=== PATIENT | female | born 1980 | race Caucasian/White ===

== ENCOUNTER 2017-05-06 22:08 | Inpatient (IN) | payer OTHER ==
[2017-05-06] MEDS ORDERED: AMPICILLIN SODIUM 2 GM VIAL ONE (22:30)
[2017-05-06 23:00] LABS: BASO % 0.3 % (0-2.0); EOS % 0.2 % (0-4.5); HEMATOCRIT 33.9 % (32.4-45.2); HEMOGLOBIN 11.2 GM/dL (10.7-15.3); LYMPH % 10.3 % (8-40); MCH 29.4 pg (25.7-33.7); MEAN CELL VOLUME 89.2 fl (80-96); MEAN PLT VOLUME 11.3 fl (7.5-11.1); MONO % 4.6 % (3.8-10.2); NEUT % 84.6 % (42.8-82.8); PLATELET COUNT 146 K/MM3 (134-434); RBC 3.81 M/mm3 (3.60-5.2); RDW 17.2 % (11.6-15.6); WHITE BLOOD COUNT 12.5 K/mm3 (4.0-10.0)
[2017-05-06] MEDS ORDERED: AMPICILLIN - 2 GM in SODIUM CHLORIDE 100 ML IVPB ONE (23:00)
[2017-05-06] MEDS: ELECTROLYTE-148 SOLN 1,000 ML IV SCH (23:00)
[2017-05-06] MEDS ORDERED: PROMETHAZINE HCL 25 MG/1 ML VIAL IVPUSH ONE (23:02)
--- NOTE | 2017-05-06 23:10 | HP ---
Past Medical History - Primary Care Physician PCP:: Janey Smiley - Admission Chief Complaint: 36 yo spontaneous rupture of membranes. Labor. GBS + History of Present Illness: 36 yo EDC 05/07/17 [id number] wk with c/o SROM and labor +AFM HIV neg GBS pos Hx of previa that resolved History Source: Patient - Past Medical History ...: 1 Psych: Yes: Depression - Past Surgical History Past Surgical History: Yes: None Hx Myomectomy: No Hx Transabdominal Cerclage: No - Smoking History Smoking history: Never smoked Have you smoked in the past 12 months: No - Alcohol/Substance Use Hx Alcohol Use: No History of Substance Use: reports: None - Social History Usual Living Arrangement: Yes: With Spouse History of Recent Travel: No Home Medications - Allergies Allergies/Adverse Reactions: Allergies Allergy/AdvReac Type Severity Reaction Status Date / Time acetaminophen [From Tylenol] Allergy Intermediate Itching Verified 05/06/17 23: 59 cabbage Allergy Intermediate Rash Verified 05/06/17 23:58 - Home Medications Home Medications: Ambulatory Orders Amoxicillin 500 mg PO DAILY 05/05/17 Celexa - 500 mg PO DAILY 05/05/17 Iron 1 tab PO DAILY 05/05/17 Vitamins (Sjr) - 1 tab PO DAILY 05/05/17 Review of Systems - Review of Systems Constitutional: reports: No Symptoms Eyes: reports: No Symptoms HENT: reports: No Symptoms Neck: reports: No Symptoms Cardiovascular: reports: No Symptoms Respiratory: reports: No Symptoms Gastrointestinal: reports: Abdominal Pain Genitourinary: reports: No Symptoms Breasts: reports: No Symptoms Reported Musculoskeletal: reports: No Symptoms Integumentary: reports: No Symptoms Neurological: reports: No Symptoms Endocrine: reports: No Symptoms Hematology/Lymphatic: reports: No Symptoms Psychiatric: reports: No Symptoms Physical Exam - Maternity Constitutional: Yes: Well Nourished, No Distress Neck: Yes: WNL Cardiovascular: Yes: WNL Lungs: Clear to auscultation Breast(s): Yes: WNL - Abdominal Exam/OB Fundal Height: 40 Number of Fetuses: Single Presentation: Vertex Regularity: Regular Monitor Mode: External Category: I Accelerations: Non-Uniform Decelerations: None - Vaginal Exam/OB Dilatation (cm): 4 Effacement (%): 100 Amniotic Membrane Status: Ruptured Amniotic Fluid: Yes: Clear Presentation: Vertex/Position - Physical Exam Musculoskeletal: Yes: WNL Extremities: Yes: WNL Edema: No - Labs Lab Results: CBC, BMP 05/06/17 22:49 Problem List - Problems (1) Spontaneous rupture of amniotic membranes Code(s): [id number] - Assessment/Plan JACQUELYN IUP at 39 weeks Labor Cat 1 BMI HIV neg GBS pos Primigravida Hx of previa resolved Plan Admit Stadol EPidural Amp
[2017-05-06] MEDS ORDERED: BUTORPHANOL TARTRATE 1 MG/ML VIAL IVPB ONE (23:15)
[2017-05-06] MEDS ORDERED: PROMETHAZINE HCL 25 MG/1 ML VIAL ONE (23:34)
[2017-05-06] MEDS ORDERED: BUTORPHANOL TARTRATE 1 MG/ML VIAL ONE ×2 (23:34)
[2017-05-06 23:35] LABS: INR 0.99 (0.82-1.09); PROTHROMBIN TIME (PATIENT) 11.2 SEC (9.98-11.88)
[2017-05-06] MEDS ORDERED: OXYTOCIN 30 UNITS in 0.9% NS 30 UNIT/500 ML INFUS.BAG IVPB SCH (23:45)
[2017-05-07] MEDS ORDERED: OXYTOCIN 30 UNITS in 0.9% NS 30 UNIT/500 ML INFUS.BAG IVPB ONE (00:08)
[2017-05-07 00:33] LABS: ALBUMIN 2.7 g/dl (3.4-5.0); ALK PHOS 202 U/L (45-117); ANION GAP 12 (8-16); BILIRUBIN,TOTAL 0.6 mg/dL (0.2-1.0); BLOOD UREA NITROGEN 5 mg/dL (7-18); CALCIUM 8.8 mg/dL (8.5-10.1); CHLORIDE 106 mmol/L (98-107); CO2 20 mmol/L (21-32); CREATININE 0.4 mg/dL (0.55-1.02); GLUCOSE,RANDOM 137 mg/dL (74-106); POTASSIUM 3.5 mmol/L (3.5-5.1); SGOT/AST 14 U/L (15-37); SGPT/ALT 21 U/L (12-78); SODIUM 138 mmol/L (136-145); TOT PROT 6.4 g/dl (6.4-8.2)
--- NOTE | 2017-05-07 00:38 | PN ---
Ante-Partal Exam - Subjective Subjective: Irregualr contraction Q 10 min with GBS positive Bleeding: No Headache: No Visual changes: No Right upper quadrant pain: No - Contractions Contractions: Yes - Exam during Labor Category: I Monitor Decelerations: None Exam: Vaginal Dilatation (cm): 4 cm Amniotic Membrane Status: Ruptured Station: -2 - Intrapartum Hemorrhage Risk Risk Score: 0 Risk Level: Low Risk - Assessment/Plan Assessment/Plan: Irregulare contractions Cat1 iup at 40 weeks SROM GBS pOsitive Plan Pit augmentation
[2017-05-07 01:20] VITALS: BMI 32.3
[2017-05-07] MEDS ORDERED: AMPICILLIN SODIUM 1 GM VIAL ONE ×2 (02:58→06:21)
[2017-05-07] MEDS: AMPICILLIN - 1 GM in SODIUM CHLORIDE 100 ML IVPB SCH ×2 (03:00→06:30)
[2017-05-07] MEDS: ELECTROLYTE-148 SOLN 1,000 ML IV SCH (06:00)
[2017-05-07] MEDS ORDERED: OXYTOCIN 20 UNITS in 0.9% NS 20 UNIT/1,000 ML INFUS.BAG IV ONE (07:36)
[2017-05-07] MEDS ORDERED: LIDOCAINE HCL 1% PRESERVATIVE FREE - 30ML VIAL ONE (07:36)
--- NOTE | 2017-05-07 08:17 | PN ---
Ante-Partal Exam - Subjective Vital Signs: Vital Signs Temperature 97.9 F 05/07/17 07:00 Pulse Rate 79 05/07/17 07:00 Respiratory Rate 20 05/07/17 07:00 Blood Pressure 116/57 05/07/17 07:00 O2 Sat by Pulse Oximetry (%) Bleeding: No Headache: No Visual changes: No Right upper quadrant pain: No - Contractions Contractions: Yes Regularity: Regular Intensity: Moderate Monitor Mode: External - Exam during Labor Heart Rate: 150 Variability: Moderate Category: I Monitor Accelerations: Present Monitor Decelerations: None Exam: Vaginal Dilatation (cm): 10 Effacement (%): 100 Amniotic Membrane Status: Ruptured Amniotic Fluid: Clear Presentation: Vertex Station: 0 - Intrapartum Hemorrhage Risk Medium Risk Factors: None High Risk Factors: None Risk Score: 0 Risk Level: Low Risk - Assessment/Plan Assessment/Plan: 2nd stage of labor Cat 1 Plan ANticipate vaginal delivery
[2017-05-07] MEDS ORDERED: METHYLERGONOVINE MALEATE 0.2 MG/1 ML AMP IM PRN (09:13)
[2017-05-07] MEDS ORDERED: BENZOCAINE 20% 57 GM BOTTLE TP PRN (09:13)
[2017-05-07] MEDS ORDERED: WITCH HAZEL 50% (TUCKS) 40 PAD/JAR PAD TP PRN (09:13)
[2017-05-07] MEDS ORDERED: BENZOCAINE 28 GM HEMORRHOIDAL OINTMENT PR PRN (09:13)
[2017-05-07] MEDS ORDERED: IBUPROFEN 600 MG TABLET (FP) PO PRN (09:13)
[2017-05-07] MEDS ORDERED: BISACODYL 10 MG SUPP.RECT RC PRN (09:13)
[2017-05-07] MEDS ORDERED: oxyCODONE HCL 5 MG TABLET PO PRN (09:13)
[2017-05-07] MEDS ORDERED: OXYTOCIN 20 UNITS in 0.9% NS 20 UNIT/1,000 ML INFUS.BAG IV SCH (09:30)
--- NOTE | 2017-05-07 09:49 | PROC ---
Obstetrical Vaccum Device - Doc. Following Use of Vaccum Device Indications for use: Maternal Exhaustion Risks and Benefits Explained: Yes Consent on Chart: Yes Dilation (0-10): 10 Station: 2 Molding: No Position: OA Caput: No Proper placement of cup confirmed: Yes Number of pulls: 1 Number of pop-offs: 0 Reduction of pressure between contractions: Yes Appearance of head on delivery: Normal Compressor Operator present during vacuum extraction: No Compressor Operator & nursery staff notified of vacuum extraction: Yes
[2017-05-07 10:12] LABS: VENOUS PC02 41.9 mmHg (38-52); VENOUS PH 7.35 (7.32-7.42); VENOUS PO2 29.3 mmHg (28-48)
[2017-05-08 08:01] LABS: BASO % 0.4 % (0-2.0); EOS % 1.1 % (0-4.5); HEMATOCRIT 23.1 % (32.4-45.2); HEMOGLOBIN 7.5 GM/dL (10.7-15.3); LYMPH % 21.3 % (8-40); MCH 29.2 pg (25.7-33.7); MCHC 32.6 g/dl (32.0-36.0); MEAN CELL VOLUME 89.3 fl (80-96); MEAN PLT VOLUME 10.5 fl (7.5-11.1); MONO % 5.9 % (3.8-10.2); NEUT % 71.3 % (42.8-82.8); PLATELET COUNT 111 K/MM3 (134-434); RBC 2.59 M/mm3 (3.60-5.2); RDW 17.1 % (11.6-15.6); WHITE BLOOD COUNT 9.7 K/mm3 (4.0-10.0)
--- NOTE | 2017-05-08 22:22 | PN ---
Post Note - Post Date of Delivery: 05/07/17 Post Day: 1 Vital Signs: Vital Signs - 24 hr 05/08/17 05/08/17 05/08/17 02:00 05:52 08:50 Temperature 98.1 F 98.0 F 97.9 F Pulse Rate 69 84 80 Respiratory 18 18 20 Rate Blood Pressure 90/51 114/69 97/54 Labs: Laboratory Results - last 24 hr 05/08/17 06:30 WBC 9.7 RBC 2.59 L D Hgb 7.5 L D Hct 23.1 L D MCV 89.3 MCH 29.2 MCHC 32.6 RDW 17.1 H Plt Count 111 L D MPV 10.5 Neutrophils % 71.3 Lymphocytes % 21.3 D Monocytes % 5.9 Eosinophils % 1.1 D Basophils % 0.4 - Subjective Subjective: No Complaints - Objective Breast: Not engorged Abdomen: Soft, Non-tender Uterus: Fundus firm Vagina: Scant lochia Extremities: Non-tender - Assessment/Plan (1) Spontaneous rupture of amniotic membranes Assessment: S/P Normal Plan: Routine Care
[2017-05-09] MEDS ORDERED: SENNOSIDES/DOCUSATE COMBO (SENNA PLUS) TABLET (UD) PO PRN (00:47)
[2017-05-09 08:46] VITALS: BP 105/65; PULSE 80; TEMP 98.5
--- NOTE | 2017-05-09 09:55 | DS ---
Physical Exam-[facility] Vital Signs: Vital Signs Temperature 98.5 F 05/09/17 08:44 Pulse Rate 80 05/09/17 08:44 Respiratory Rate 20 05/09/17 08:44 Blood Pressure 105/65 05/09/17 08:44 O2 Sat by Pulse Oximetry (%) Constitutional: Yes: Well Nourished, No Distress Cardiovascular: Yes: WNL, Regular Rate and Rhythm Respiratory: Yes: WNL Gastrointestinal: Yes: WNL, Normal Bowel Sounds ...Rectal Exam: Yes: WNL Renal/: Yes: WNL ....Post : Yes: Uterus firm, Uterus non-tender Breast(s): Yes: WNL Musculoskeletal: Yes: WNL Extremities: Yes: WNL Edema: No Neurological: Yes: WNL, Alert, Oriented Labs: CBC, BMP 05/08/17 06:30 05/06/17 23:45 Delivery - Delivery Vaginal Delivery: Vacuum Assist Type of Anesthesia: Local Episiotomy/Laceration: Left Mediolateral EBL (cc): 350 Delivery, Single - Stages of Labor Date 1st Stage Initiatied: 05/07/17 Time 1st Stage Initiated: 22:15 Date 2nd Stage Initiated: 05/07/17 Time 2nd Stage Initiated: 07:30 Date of Delivery: 05/07/17 Time of Delivery: 09:34 Time Placenta Delivered: 09:40 Placenta: Yes: Spontaneous - Condition of Gluer/[place] Opener Present: No Gender: Male Weight: 7 lb 11 oz Position: Left, OA Total Hours ROM (Hrs/Mins): 11h 19min - 1 Minute Total Score: 9 5 Minutes Total Score: 9 - [place] Feeding Plan Initial Plan: Elected not to breastfeed exclusively throughout hospitalization Discharge Summary Reason For Visit: LABOR ADMIT Current Active Problems Spontaneous rupture of amniotic membranes (Acute) Anemia Procedures: Principal: Normal Vacuum Delivery Hospital Course: unremarkable Condition: Good - Instructions Referrals: Janey Smiley MD [Staff Physician] - 1 Month (call for appointment) Disposition: HOME - Home Medications Comprehensive Discharge Medication List: Ambulatory Orders Citalopram Hydrobromide [Celexa -] 1 tab PO DAILY 05/07/17 Ferrous Sulfate [Feosol] 325 mg PO DAILY 05/07/17 Vitamins (Sjr) - 1 tab PO DAILY 05/07/17 Ibuprofen [Motrin -] 600 mg PO QID PRN #28 tablet 05/08/17
== END 2017-05-09 15:00 | disposition home or self-care (01) | DRG 775 ==
LOC: JDEL 22:08 → JLDR 22:25 → J3W 05-07 11:45
PROVIDERS: ADMIT Obstetrics & Gynecology; ATTEND Obstetrics & Gynecology
PROC: 10D07Z6 Extraction of Products of Conception, Vacuum, Via Natural or Artificial Opening (ICD-10-PCS; principal; 2017-05-07)
PROC: 0W8NXZZ Division of Female Perineum, External Approach (ICD-10-PCS; 2017-05-07)
DX: O99.824 Streptococcus B carrier state complicating childbirth (principal); O75.81 Maternal exhaustion complicating labor and delivery; Z37.0 Single live birth; Z3A.39 39 weeks gestation of pregnancy
CPT/HCPCS: 36415; 59409; 71046-TC-FY; 80053; 82803; 85025; 85610; 85730; 86593; 86850; 86900; 86901

== ENCOUNTER 2024-02-05 04:47 | Day surgery (SDC) | payer OTHER ==
[2024-02-01 17:50] VITALS: BMI 34.4
[2024-02-05] MEDS ORDERED: PROPOFOL 40 ML ONE (07:32)
[2024-02-05] MEDS ORDERED: MIDAZOLAM HCL 2 MG/2 ML SINGLE DOSE VIAL ONE (07:32)
[2024-02-05] MEDS ORDERED: SUCCINYLCHOLINE CHLORIDE 200 MG/10 ML SYRINGE ONE (07:35)
[2024-02-05] MEDS ORDERED: LIDOCAINE HCL 1%, 10 MG/ML (20ML VIAL) ONE (07:36)
[2024-02-05] MEDS ORDERED: ONDANSETRON 4 MG/2 ML VIAL IVPUSH PRN (08:54)
[2024-02-05] MEDS ORDERED: LACTATED RINGERS SOLUTION 1,000 ML IV SCH (09:00)
[2024-02-05 16:03] VITALS: BP 113/65; RESP 20; TEMP 97.7
[2024-02-05 16:18] VITALS: PULSE 73
== END 2024-02-05 13:30 | disposition home or self-care (01) ==
LOC: JASU-SURG 04:47
PROVIDERS: ATTEND Obstetrics & Gynecology
PROC: 0UB98ZZ Excision of Uterus, Via Natural or Artificial Opening Endoscopic (ICD-10-PCS; principal; 2024-02-05 07:30)
DX: D25.0 Submucous leiomyoma of uterus (principal)
CPT/HCPCS: 81025; 88305-TC; 94760